=== PATIENT | female | born 1990 | race Caucasian/White ===

== ENCOUNTER 2021-03-29 20:34 | Emergency (ER) | payer BC ==
[~2021-03-29] VITALS: Ht 165.1 cm; Wt 79.5 kg
[~2021-03-29 20:34] MED LIST: APRI 0.15 MG-0.1 TAB PO; CLEOCIN HC150 MG/CAP PO; GLUCOPHAGE1000 MG PO; NO HOME MEDICATIONS; NORCO 325 MG-51 TAB PO; PREDNISONE20 MG PO; VENTOLIN0.09 MG IH; ZITHROMAX Z PA250 MG PO; ZOFRAN 4MG T4 MG/TAB PO
[2021-03-30 00:29] LABS: HEMATOCRIT 42.8 % (37.0-47.0); HEMOGLOBIN 13.9 g/dl (12.5-16.0); MEAN CELL VOLUME 88 fl (80.0-100.0); MEAN CORPUSCULAR HEMOGLOBIN 29 pg (27.0-31.0); MEAN CORPUSCULAR HGB CONC 33 g/dl (33.0-37.0); MEAN PLATELET VOLUME 9.3 fl (7.4-10.4); PLATELET COUNT 201 K/mm3 (130-400); RED BLOOD COUNT 4.87 M/mm3 (4.10-5.30); REDCELL DISTRIBUTION WIDTH-CV 12.6 % (11.5-14.5)
[2021-03-30 00:40] LABS: ALBUMIN 4.2 gm/dL (3.5-5.0); BILIRUBIN,TOTAL 0.4 mg/dL (0.0-1.0); CREATININE, serum 0.58 (0.52-1.25); POTASSIUM 4.4 mmol/L (3.4-5.0); TOTAL PROTEIN 7.9 gm/dL (6.4-8.2)
[2021-03-30 00:57] LABS: C-REACTIVE PROTEIN 6.4 mg/dL (0.0-0.9)
[2021-03-30 01:27] LABS: BAND 19 % (0-10); LYMPHOCYTE 26 % (20.0-51.0); METAMYELOCYTE 1 % (0-0); NEUTROPHILS 53 % (42.0-75.2); PLATELET ESTIMATE NORMAL (NORMAL)
[2021-03-30 02:18] VITALS: BP 131/72; PULSE 100; TEMP 99
== END 2021-03-30 02:15 | disposition home or self-care (01) ==
LOC: COL.ER 20:34
PROVIDERS: Nurse Practitioner
DX: U07.1 COVID-19 (principal)
CPT/HCPCS: J1885; J7030; Q9967

== ENCOUNTER 2021-04-01 18:45 | Inpatient (IN) | payer BC ==
[~2021-04-01] VITALS: Ht 165.1 cm; Wt 76.9 kg
[2021-04-01 19:42] LABS: HEMOGLOBIN 14.2 g/dl (12.5-16.0); MEAN CELL VOLUME 85 fl (80.0-100.0); MEAN CORPUSCULAR HEMOGLOBIN 28 pg (27.0-31.0); MEAN CORPUSCULAR HGB CONC 33 g/dl (33.0-37.0); MEAN PLATELET VOLUME 9.2 fl (7.4-10.4); PLATELET COUNT 256 K/mm3 (130-400); RED BLOOD COUNT 5.08 M/mm3 (4.10-5.30); REDCELL DISTRIBUTION WIDTH-CV 12.7 % (11.5-14.5)
[2021-04-01 19:58] LABS: ALBUMIN 4.3 gm/dL (3.5-5.0); BILIRUBIN,TOTAL 0.7 mg/dL (0.0-1.0); CALCIUM 9.2 mg/dL (8.4-10.2); CREATININE, serum 0.51 (0.52-1.25); POTASSIUM 3.7 mmol/L (3.4-5.0); TOTAL PROTEIN 8.3 gm/dL (6.4-8.2)
[2021-04-01 20:14] LABS: LYMPHOCYTE 26 % (20.0-51.0); NEUTROPHILS 68 % (42.0-75.2)
[2021-04-01 20:15] LABS: HYPOCHROMIA 1+; PLATELET ESTIMATE NORMAL (NORMAL)
[2021-04-01] MEDS ORDERED: MINIPRESS2 MG PO (22:01)
[2021-04-01] MEDS ORDERED: PROZAC 20MG20 MG PO (22:02)
[2021-04-01] MEDS ORDERED: ZYPREXA2.5 MG PO (22:05)
[2021-04-01 23:31] VITALS: BP 136/89; PULSE 105; TEMP 97.9
[2021-04-02 02:20] LABS: TROPONIN-I < 0.012 ng/mL (0.000-0.035)
[2021-04-02 02:21] LABS: INR 2.7 (0.8-3.0); PROTHROMBIN TIME 30.5 SECONDS (9.7-12.8)
[2021-04-02 04:57] VITALS: BP 107/65; PULSE 75; TEMP 97.9
[2021-04-02 08:04] LABS: HEMATOCRIT 41.1 % (37.0-47.0); HEMOGLOBIN 13.2 g/dl (12.5-16.0); MEAN CELL VOLUME 87 fl (80.0-100.0); MEAN CORPUSCULAR HEMOGLOBIN 28 pg (27.0-31.0); MEAN CORPUSCULAR HGB CONC 32 g/dl (33.0-37.0); MEAN PLATELET VOLUME 9.8 fl (7.4-10.4); PLATELET COUNT 266 K/mm3 (130-400); RED BLOOD COUNT 4.74 M/mm3 (4.10-5.30)
[2021-04-02 08:30] VITALS: BP 127/76; PULSE 79; TEMP 97.7
[2021-04-02 09:32] LABS: BAND 22 % (0-10); LYMPHOCYTE 21 % (20.0-51.0); NEUTROPHILS 57 % (42.0-75.2); PLATELET ESTIMATE NORMAL (NORMAL)
[2021-04-02 11:36] VITALS: BP 132/75; PULSE 84; TEMP 97.6
[2021-04-02 16:46] VITALS: BP 135/78; PULSE 71; TEMP 97.7
[2021-04-02 19:27] LABS: CALCIUM 9.6 mg/dL (8.4-10.2); CREATININE, serum 0.5 (0.52-1.25); POTASSIUM 4.2 mmol/L (3.4-5.0)
[2021-04-02 20:41] VITALS: BP 138/74; PULSE 75; TEMP 97.5
[2021-04-03] VITALS (7 sets, daily range): BP systolic 109–142; BP diastolic 58–79; PULSE 55–86; TEMP 97.5–98.4
[2021-04-03 08:14] LABS: INR 1.1 (0.8-3.0); PROTHROMBIN TIME 12.5 SECONDS (9.7-12.8)
[2021-04-03 09:56] LABS: CALCIUM 9.4 mg/dL (8.4-10.2); CREATININE, serum 0.55 (0.52-1.25); MAGNESIUM 2.1 mg/dL (1.6-2.3); POTASSIUM 4.1 mmol/L (3.4-5.0)
[2021-04-04 03:34] VITALS: BP 138/70; PULSE 52; TEMP 97.5
[2021-04-04 08:52] VITALS: BP 130/62; PULSE 56; TEMP 97.6
[2021-04-04 09:10] LABS: HEMATOCRIT 38.1 % (37.0-47.0); HEMOGLOBIN 12.6 g/dl (12.5-16.0); MEAN CELL VOLUME 85 fl (80.0-100.0); MEAN CORPUSCULAR HEMOGLOBIN 28 pg (27.0-31.0); MEAN CORPUSCULAR HGB CONC 33 g/dl (33.0-37.0); MEAN PLATELET VOLUME 9.8 fl (7.4-10.4); PLATELET COUNT 303 K/mm3 (130-400); RED BLOOD COUNT 4.48 M/mm3 (4.10-5.30); REDCELL DISTRIBUTION WIDTH-CV 13.1 % (11.5-14.5)
[2021-04-04 09:26] LABS: CREATININE, serum 0.57 (0.52-1.25); POTASSIUM 3.9 mmol/L (3.4-5.0)
[2021-04-04 10:35] LABS: BAND 3 % (0-10); LYMPHOCYTE 13 % (20.0-51.0); NEUTROPHILS 72 % (42.0-75.2)
[2021-04-04 10:37] LABS: PLATELET ESTIMATE NORMAL (NORMAL)
[2021-04-04 11:29] VITALS: BP 135/75; PULSE 56; TEMP 97.5
[2021-04-04 16:05] VITALS: BP 128/76; PULSE 63; TEMP 97.8
[2021-04-04 21:43] VITALS: BP 146/77; PULSE 68; TEMP 97.6
[2021-04-04 23:38] VITALS: BP 154/75; PULSE 58; TEMP 97.6
[2021-04-05 04:47] VITALS: BP 105/59; PULSE 56; TEMP 97.5
[2021-04-05 08:00] LABS: HEMATOCRIT 39.1 % (37.0-47.0); MEAN CELL VOLUME 84 fl (80.0-100.0); MEAN CORPUSCULAR HEMOGLOBIN 28 pg (27.0-31.0); MEAN CORPUSCULAR HGB CONC 33 g/dl (33.0-37.0); PLATELET COUNT 316 K/mm3 (130-400); RED BLOOD COUNT 4.63 M/mm3 (4.10-5.30); REDCELL DISTRIBUTION WIDTH-CV 12.8 % (11.5-14.5)
[2021-04-05 08:35] LABS: CALCIUM 9.3 mg/dL (8.4-10.2); CREATININE, serum 0.52 (0.52-1.25)
[2021-04-05 08:39] VITALS: BP 121/84; PULSE 75; TEMP 97.5
[2021-04-05 08:50] LABS: BAND 4 % (0-10); LYMPHOCYTE 19 % (20.0-51.0); METAMYELOCYTE 6 % (0-0); NEUTROPHILS 64 % (42.0-75.2)
[2021-04-05 08:51] LABS: PLATELET ESTIMATE NORMAL (NORMAL)
[2021-04-05 09:54] LABS: PATHOLOGY DIFF REVIEW OK
[2021-04-05 12:31] VITALS: BP 123/86; PULSE 68; TEMP 98.3
[2021-04-05 16:50] VITALS: BP 132/68; PULSE 69; TEMP 97.7
[2021-04-05 20:25] VITALS: BP 135/88; PULSE 88; TEMP 97.6
[2021-04-06 00:12] VITALS: BP 119/67; PULSE 63; TEMP 97.6
[2021-04-06 04:28] VITALS: BP 127/75; PULSE 56; TEMP 97.7
[2021-04-06 07:52] LABS: HEMATOCRIT 40.2 % (37.0-47.0); HEMOGLOBIN 13.1 g/dl (12.5-16.0); MEAN CELL VOLUME 85 fl (80.0-100.0); MEAN CORPUSCULAR HEMOGLOBIN 28 pg (27.0-31.0); MEAN CORPUSCULAR HGB CONC 33 g/dl (33.0-37.0); MEAN PLATELET VOLUME 9.9 fl (7.4-10.4); PLATELET COUNT 334 K/mm3 (130-400); RED BLOOD COUNT 4.72 M/mm3 (4.10-5.30); REDCELL DISTRIBUTION WIDTH-CV 12.6 % (11.5-14.5)
[2021-04-06 07:58] VITALS: BP 138/84; PULSE 62; TEMP 97.8
[2021-04-06 07:58] LABS: CREATININE, serum 0.59 (0.52-1.25); POTASSIUM 4.2 mmol/L (3.4-5.0)
[2021-04-06 08:45] LABS: BAND 8 % (0-10); LYMPHOCYTE 23 % (20.0-51.0); METAMYELOCYTE 6 % (0-0); NEUTROPHILS 58 % (42.0-75.2); NUCLEATED RED BLOOD CELL 1 (0-6); PLATELET ESTIMATE NORMAL (NORMAL)
[2021-04-06] MEDS ORDERED: RT Albuterol HFA MDI IH ×2 (10:09)
[2021-04-06] MEDS ORDERED: DECADRON6 MG PO (10:10)
[2021-04-06] MEDS ORDERED: PROAIR HFA0.09 MG/AC IH (10:10)
[2021-04-06] MEDS ORDERED: LEVEMIR100 U/ML SQ (10:10)
[2021-04-06] MEDS ORDERED: NOVLOG SQ (10:11)
[2021-04-06] MEDS ORDERED: NOVOLOG 100U100 U/M1 SQ (10:12)
[2021-04-06 11:41] VITALS: BP 117/79; PULSE 73; TEMP 97.6
== END 2021-04-06 15:17 | disposition home or self-care (01) | DRG 177 ==
LOC: COL.ER 18:45 → MEDICAL 19:47
PROVIDERS: Emergency Medicine; Internal Medicine; Nurse Practitioner Family; Student in an Organized Health Care Education/Training Program; ADMIT Internal Medicine
PROC: XW033E5 Introduction of Remdesivir Anti-infective into Peripheral Vein, Percutaneous Approach, New Technology Group 5 (ICD-10-PCS; principal; 2021-04-02)
DX: U07.1 COVID-19 (principal); J12.82 Pneumonia due to coronavirus disease 2019; J96.01 Acute respiratory failure with hypoxia; E87.2 Acidosis; F41.9 Anxiety disorder, unspecified; F32.9 Major depressive disorder, single episode, unspecified; E11.9 Type 2 diabetes mellitus without complications; F43.10 Post-traumatic stress disorder, unspecified; E28.2 Polycystic ovarian syndrome; E11.65 Type 2 diabetes mellitus with hyperglycemia; F44.81 Dissociative identity disorder
CPT/HCPCS: 99223-AI; 99232-AI; 99233-AI; 99239; J0696; J1100; J1650; J1815; J7030; J7050; J8540

== ENCOUNTER → 2022-11-14 | Outpatient (CLI) | payer OTHER ==
[~2022-11-14] MED LIST changes: +DECADRON6 MG PO; +LEVEMIR100 U/ML SQ; +MINIPRESS2 MG PO; +NOVLOG SQ; +NOVOLOG 100U100 U/M1 SQ; +PROAIR HFA0.09 MG/AC IH; +PROZAC 20MG20 MG PO; +RT Albuterol HFA MDI IH; +ZYPREXA2.5 MG PO
== END ==
LOC: COL.CARD 13:36
DX: R06.89 Other abnormalities of breathing (principal)